=== PATIENT | female | born 2000 | race Two or more races ===

== ENCOUNTER 2024-07-17 07:47 | Inpatient (IN) | payer OTHER ==
[~2024-07-17] VITALS: Ht 162.6 cm; Wt 139.1 kg
[2024-07-17] MEDS ORDERED: LOPERAMIDE HCL 2 MG CAPSULE PO PRN (09:15)
[2024-07-17] MEDS ORDERED: MAGNESIUM HYDROXIDE SUSPENSION 30 ML UDCUP PO PRN (09:15)
[2024-07-17] MEDS ORDERED: HALOPERIDOL 5 MG TABLET PO PRN (09:15)
[2024-07-17] MEDS ORDERED: ACETAMINOPHEN 325 MG TABLET PO PRN (09:15)
[2024-07-17] MEDS ORDERED: MAG HYDROX/ALUMINUM HYD/SIMETH ES 30 ML SUSPENSION UDCUP PO PRN (09:15)
[2024-07-17 13:14] VITALS: BP 125/70; PULSE 76; RESP 18; TEMP 96.8; O2SAT 96
[2024-07-17] MEDS: LORazepam 2 MG TABLET PO PRN (17:51)
[2024-07-17 20:00] VITALS: BP 137/68; PULSE 92; RESP 16; TEMP 97.7; O2SAT 95
[2024-07-17] MEDS: ZOLPIDEM TARTRATE 10 MG TABLET PO PRN (21:44)
[2024-07-18] MEDS ORDERED: PETROLATUM,WHITE 28 GM JELLY TP PRN (08:00)
[2024-07-18] MEDS ORDERED: MAGNESIUM HYDROXIDE SUSPENSION 30 ML UDCUP PO PRN (08:00)
[2024-07-18] MEDS ORDERED: GuaiFENesin/D-METHORPHAN [SUGAR-FREE] 200-20MG/10 ML SYRUP UDCUP PO PRN (08:00)
[2024-07-18] MEDS ORDERED: ALBUTEROL SULFATE HFA 90 MCG/PUFF 8 GM INHALER IH PRN (08:00)
[2024-07-18] MEDS ORDERED: MAG HYDROX/ALUMINUM HYD/SIMETH ES 30 ML SUSPENSION UDCUP PO PRN (08:00)
[2024-07-18] MEDS ORDERED: ACETAMINOPHEN 325 MG TABLET PO PRN (08:00)
[2024-07-18] MEDS ORDERED: DOCUSATE SODIUM 100 MG CAPSULE PO PRN (08:00)
[2024-07-18] MEDS ORDERED: LOPERAMIDE HCL 2 MG CAPSULE PO PRN (08:00)
[2024-07-18] MEDS ORDERED: IBUPROFEN 400 MG TABLET PO PRN (08:00)
[2024-07-18] MEDS ORDERED: NICOTINE 14 MG/24 HOUR PATCH TD PRN (08:00)
[2024-07-18] MEDS ORDERED: CloNIDine HCL 0.1 MG TABLET PO PRN (08:00)
[2024-07-18] MEDS: ONDANSETRON 4 MG TABLET PO PRN (08:49)
[2024-07-18 09:11] LABS: BASOPHILS % (AUTO) 0.6 % (0.0-2.0); EOSINOPHILS % (AUTO) 0.6 % (1.0-6.0); HEMATOCRIT 45.5 % (36-46); LYMPHOCYTES # (AUTO) 3.5 K/uL (1.0-4.8); LYMPHOCYTES % (AUTO) 31.5 % (22.0-44.0); MEAN CORPUSCULAR HEMOGLOBIN 28.9 pg (26.0-34.0); MEAN CORPUSCULAR HGB CONC 32.9 G/dL (31.0-37.0); MEAN CORPUSCULAR VOLUME 88 fL (80-100); MONOCYTES # (AUTO) 0.4 K/uL (0.1-1.0); MONOCYTES % (AUTO) 3.4 % (2.0-9.0); NEUTROPHILS # (AUTO) 7.1 K/uL (1.8-7.7); NEUTROPHILS % (AUTO) 63.9 % (40.0-70.0); PLATELET COUNT (AUTO) 529 K/uL (150-450); RED BLOOD CELL COUNT(AUTO) 5.18 MIL/uL (4.00-5.20); RED CELL DISTRIBUTION WIDTH 14.1 % (11.5-14.5); WHITE BLOOD COUNT (AUTO) 11.1 K/uL (4.5-11.0)
[2024-07-18 09:25] VITALS: BP 115/75; PULSE 90; RESP 18; TEMP 98.2; O2SAT 98
[2024-07-18] MEDS: SERTRALINE HCL 50 MG TABLET PO SCH (12:28)
[2024-07-18 20:20] VITALS: BP 137/78; PULSE 100; RESP 18; TEMP 97.9; O2SAT 97
[2024-07-18] MEDS ORDERED: QUEtiapine FUMARATE 100 MG TABLET PO SCH (21:00)
[2024-07-19 08:15] VITALS: BP 140/75; PULSE 88; RESP 17; TEMP 98; O2SAT 95
[2024-07-19 12:45] LABS: HEMOGLOBIN A1C 5.5 % (3.8-5.6)
[2024-07-19 13:02] LABS: CHOL/HDL RATIO 4.7 (3.9-5.7); THYROID STIMULATING HORMONE 0.71 uIU/mL (0.36-3.74)
[2024-07-19 13:55] LABS: ALCOHOL, URINE DRUG SCREEN NEGATIVE (NEGATIVE); AMPHET/METH SCREEN,URINE NEGATIVE (NEGATIVE); BARBITURATE SCREEN, URINE NEGATIVE (NEGATIVE); BENZODIAZEPINES SCREEN,URINE NEGATIVE (NEGATIVE); CANNABINOID SCREEN,URINE POSITIVE (NEGATIVE); COCAINE SCREEN,URINE NEGATIVE (NEGATIVE); METHADONE SCREEN, URINE NEGATIVE (NEGATIVE); OPIATE SCREEN,URINE NEGATIVE (NEGATIVE); PHENCYCLIDINE SCREEN,URINE NEGATIVE (NEGATIVE)
[2024-07-19 13:59] LABS: APPEARANCE,URINE TURBID (CLEAR); BILIRUBIN,URINE NEGATIVE (NEGATIVE); COLOR,URINE YELLOW (YELLOW); GLUCOSE, URINE (UA) NEGATIVE (NEGATIVE); KETONES,URINE NEGATIVE (NEGATIVE); LEUKOCYTE ESTERASE ,URINE NEGATIVE (NEGATIVE); NITRATE,URINE NEGATIVE (NEGATIVE); OCCULT BLOOD,URINE NEGATIVE (NEGATIVE); PROTEIN,URINE NEGATIVE (NEGATIVE); SPECIFIC GRAVITIY, URINE 1.023 (1.003-1.030); UROBILINOGEN,URINE <=1.0 mg/dL (<=1.0)
[2024-07-19 14:22] LABS: BACTERIA,URINE Few /HPF (None Seen); CALCIUM OXALATE CRYSTALS,UR Few /LPF (None Seen); RBC,URINE None Seen /HPF (0-2); SQUAMOUS EPITHELIAL CELL,UR Few /LPF (None Seen); WBC,URINE None Seen /HPF (0-5)
[2024-07-19 20:16] VITALS: BP 123/84; PULSE 94; RESP 18; TEMP 98; O2SAT 95
[2024-07-20 08:11] VITALS: BP 140/90; PULSE 94; RESP 18; TEMP 98.2; O2SAT 98
[2024-07-20 20:18] VITALS: BP 131/75; PULSE 100; RESP 18; TEMP 98.1; O2SAT 95
[2024-07-21 04:06] LABS: HEPATITIS C AB (EIA) Non Reactive (Non Reactive)
[2024-07-21 08:12] VITALS: BP 131/90; PULSE 98; RESP 17; TEMP 97.5; O2SAT 95
[2024-07-21 20:00] VITALS: BP 133/88; PULSE 100; RESP 16; TEMP 98.1; O2SAT 95
[2024-07-22 08:16] VITALS: BP 128/82; PULSE 83; RESP 18; TEMP 98.6; O2SAT 98
[2024-07-22] MEDS ORDERED: SERT-439 PO (13:00)
== END 2024-07-22 17:14 | disposition home or self-care (01) | DRG 885 ==
LOC: B2X 14:01
PROVIDERS: ADMIT Psychiatry & Neurology Psychiatry; ATTEND Psychiatry & Neurology Psychiatry
PROC: GZHZZZZ Group Psychotherapy (ICD-10-PCS; principal; 2024-07-18)
PROC: GZ52ZZZ Individual Psychotherapy, Cognitive (ICD-10-PCS; 2024-07-18)
DX: F33.2 Major depressive disorder, recurrent severe without psychotic features (principal); R45.851 Suicidal ideations; Z68.43 Body mass index [BMI] 50.0-59.9, adult; E66.01 Morbid (severe) obesity due to excess calories; F12.10 Cannabis abuse, uncomplicated; Z20.822 Contact with and (suspected) exposure to COVID-19; F41.9 Anxiety disorder, unspecified; G47.00 Insomnia, unspecified; Z79.899 Other long term (current) drug therapy; Z91.51 Personal history of suicidal behavior
CPT/HCPCS: 80061; 80307; 81001; 81003; 83036; 84443; 84703; 85025; 86803; 87340; Q0162